=== PATIENT | male | born 1945 | race Caucasian/White ===

== ENCOUNTER 2022-07-11 12:38 | Inpatient (IN) | payer OTHER ==
[2022-07-11] VITALS (20 sets, daily range): BP systolic 82–109; BP diastolic 50–60
[~2022-07-11] VITALS: Ht 175.3 cm; Wt 74.8 kg
--- NOTE | 2022-07-11 12:50 | NUR ---
DUCRA 88 FROM HOME FOUND BY SON ON THE FLOOR WITH BRIGHT RED BLOOD ON FECES
[2022-07-11 13:17] LABS: EOSINOPHILS % (AUTO) 0.7 % (0.0-6.0); LYMPHOCYTES # (AUTO) 1.6 K/uL (0.8-4.8)
[2022-07-11 13:21] LABS: BASOPHILS % (AUTO) 0.2 % (0.0-2.0); LYMPHOCYTES % (AUTO) 19.9 % (20.0-44.0); MEAN CORPUSCULAR HGB CONC 32 g/dl (31.0-36.0); MEAN CORPUSCULAR VOLUME 95 fL (80-96); MONOCYTES # (AUTO) 0.4 K/uL (0.1-1.30); MONOCYTES % (AUTO) 5.4 % (2.0-12.0); NEUTROPHILS % (AUTO) 73.8 % (43.0-81.0); PLATELET COUNT (AUTO) 271 K/uL (150-450); WHITE BLOOD COUNT (AUTO) 8.1 K/uL (4.3-11.0)
[2022-07-11 13:23] LABS: HEMATOCRIT 14 % (39-51); HEMOGLOBIN 4.4 g/dL (13.5-17.5); RED BLOOD CELL COUNT(AUTO) 1.47 MIL/uL (4.5-6.0)
[2022-07-11 13:24] LABS: CALCIUM, SERUM 6.9 mg/dL (8.5-10.1); CREATININE 1.2 mg/dL (0.6-1.3)
--- NOTE | 2022-07-11 13:29 | NUR ---
DR MAJOR AT BEDSIDE
[2022-07-11 13:30] LABS: ALBUMIN 1.7 g/dL (3.4-5.0); BILIRUBIN,DIRECT 0.1 mg/dL (0.0-0.2); BILIRUBIN,TOTAL 0.1 mg/dL (0.2-1.0); TOTAL PROTEIN, SERUM 3.7 g/dL (6.4-8.2)
--- NOTE | 2022-07-11 13:42 | NUR ---
COVID SWAB TAKEN
--- NOTE | 2022-07-11 14:00 | NUR ---
CONSENT FOR BLOOD TRANSFUSION SIGNED BY PATIENT
--- NOTE | 2022-07-11 14:38 | NUR ---
bed given 108
--- NOTE | 2022-07-11 14:39 | NUR ---
ROOM 108, ADMITTING AWARE
--- NOTE | 2022-07-11 14:48 | NUR ---
REPORT GIVEN TO CHE JORDAN
[2022-07-11] MEDS ORDERED: ONDANSETRON HCL/PF 4 MG/2 ML VIAL ONE (14:56)
[2022-07-11] MEDS ORDERED: ONDANSETRON HCL/PF 4 MG/2 ML VIAL IV ONE (15:00)
[2022-07-11] MEDS ORDERED: IV NS 0.9% 1,000 ML IV ONE ×3 (15:00→17:00)
[2022-07-11] MEDS ORDERED: ONDANSETRON HCL/PF 4 MG/2 ML VIAL IVP PRN (15:30)
[2022-07-11] MEDS ORDERED: Calcium Gluconate 1GM/10ML 9.3 MEQ in IV NS 0.9% 100 ML IV ONE (15:30)
[2022-07-11] MEDS ORDERED: ACETAMINOPHEN 325 MG TABLET PO PRN (15:30)
--- NOTE | 2022-07-11 15:39 | NUR ---
2GM OF CALCIUM GLUCONATE RUNNING AT 100ML/HR ENDORSED TO FLOOR NURSE, INFUSING WELL
--- NOTE | 2022-07-11 15:42 | NUR ---
MOVED TO INPATIENT ROOM SAFELY PER ACLS PROTOCOL.
[2022-07-11 15:45] LABS: EOSINOPHILS % (MANUAL) 1 % (0-4); LYMPHOCYTES % (MANUAL) 14 % (16-48); MONOCYTES % (MANUAL) 5 % (0-11.0); NEUTROPHILS % (MANUAL) 80 (42-76)
--- NOTE | 2022-07-11 15:45 | NUR ---
ADMITTED PATIENT TO THE UNIT. PT ALERT ORIENTED X 4, BILINGUAL EAST TIMOR[place], CHINESE SPEAKER, ABLE TO MAKE NEEDS KNOWN, ANSWERING QUESTIONS. PT AMBULATORY WITH ASSISTANCE, SKIN CLEAN. VITAL SIGNS BP 88/46, HR 81, TEMP 98.6, SAT 99% ON RA. IV ACCESS RIGHT AC AND RIGHT HAND. FALL PRECAUTIONS IMPLEMENTED, BED LOCKED AND IN LOWEST POSITION, WILL CONTINUE TO MONITOR.
[2022-07-11 15:55] LABS: HEMOGLOBIN 3.9 g/dL (13.5-17.5)
--- NOTE | 2022-07-11 16:04 | NUR ---
lab just called in stated hgb 3.8 hct 12 daniella flores DNP notified waiting for returning call back
--- NOTE | 2022-07-11 16:05 | NUR ---
returned call back and blood transfusion orders given we will give ASAS possible when ready
[2022-07-11] MEDS: PANTOPRAZOLE 40 MG VIAL IV SCH ×2 (16:10→21:36)
[2022-07-11 18:11] LABS: VBG COHb 0.1 %; VBG MetHb 4.7 %; VBG O2Hb 11.1 %; VENT MODE, VBG RA
--- NOTE | 2022-07-11 19:19 | NUR ---
RN CLOSING NOTE PATIENT ALERT, COOPERATIVE, O2 VIA NC AT 2L PER DOCTORS ORDER. GETTING FIRST OUT OF [facility] RBC UNIT TRANSFUSE RIGHT NOW. VITAL SIGNS STABLE. SAFETY MEASURES IMPLEMENTED, WILL ENDORSE TO THE UX DEVELOPER DESIGNER TO JOANA.
--- NOTE | 2022-07-11 19:30 | NUR ---
RN OPENING NOTE RECEIVED PT IN BED, AWAKE, A/0 X 4, SPEAKS SETSWANA. BLOOD TRANSFUSION CURRENTLY ON GOING. ON THERAPY VIA NC @ 2 LPM, TOLERATING WELL. NO S/SX OF ACUTE RESPI DISTRESS NOTED AT THIS TIME. CLAMSHELL ENGINEER READS SR WITH HR IN THE 70s. O2 SAT @ 100%. IV ACCESS NOTED ON RAC WHERE BT IS ON GOING, R HAND RUNNING NS @ 75 CC/HR. BOTH PATENT AND INTACT. ALL SAFETY MEASURES IN PLACE: BED LOCKED IN LOW POSITION, BED ALARM ON, SR UP X 2, CALL LIGHT WITHIN REACH. WILL CONTINUE TO MONITOR PT.
--- NOTE | 2022-07-11 20:08 | NUR ---
2008 Admit status verified with LOADING UNIT OPERATOR SEATING Tye and corin Morales she wanted patient to be admitted to ICU for Severe anemia active bleed. supercharge repair supervisor Lashonda made aware that patient was supposed to go to ICU.
--- NOTE | 2022-07-11 20:15 | NUR ---
2015 Per ICU Charge Nurse Elizabeth patient will go to room 258.
--- NOTE | 2022-07-11 20:41 | NUR ---
RN NOTE 2ND BAG OF PRBC STARTED @ 20:29. PT VS STABLE. NO S/SX OF ACUTE DISTRESS NOTED AT THIS TIME. VS FOLLOW: TEMP: 98.1 BP: 91/51 HR: 77 RR: 18 O2 SAT: 100%
--- NOTE | 2022-07-11 21:00 | NUR ---
PT RECEIVED FROM SIMONE WITH A DX OF ACUTE GI BLEED AND A HX OF ULCER AND PREVIOUS GI BLEED. A/O X4, SPEAKS NIUEAN. ON 02 AT 2LPM VIA NC. ATTACHED TO MONITOR. SHOWING SR. IV ACCESS ON RT HAND INFUSING NS AT 75ML/HR AND RT AC INFUSING 2ND BAG OF PRBC AT 120ML/HR, TOLERATING WELL. ON CLEAR LIQUID DIET. SKIN CHECK DONE. SKIN INTACT. BELONGINGS CHECKED, FORM PLACED ON CHART. VS CHECKED. SAFETY MEASURES IMPLEMENTED. WILL CONTINUE PLAN OF CARE.
--- NOTE | 2022-07-11 21:06 | NUR ---
RN NOTE REPORT GIVEN TO FRANCISCA FROM ICU. TRANSFERRED PT.
--- NOTE | 2022-07-11 21:10 | NUR ---
2109 Transferred to ICU on ACLS protocol. Patient awake and verbally responsive. Second bag of PRBC infusing, no signs of adverse reaction to blood transfusion noted.
[2022-07-11] MEDS: IV NS 0.9% 1,000 ML IV PRN (23:01)
[2022-07-12] VITALS (87 sets, daily range): BP systolic 87–156; BP diastolic 38–114
[2022-07-12] MEDS ORDERED: IV NS 0.9% 500 ML IV ONE
--- NOTE | 2022-07-12 00:12 | NUR ---
Patient hemodynamically unstable.BRENDON YARBROUGH notified with orders received and carried out. NS 500 ml bolus given.
--- NOTE | 2022-07-12 01:05 | NUR ---
MIDLINE G 18 inserted to BAILEY by BRENDON Herrera with good returned.
--- NOTE | 2022-07-12 07:05 | NUR ---
RN NOTES RECEIVED PT ON BED A/Ox4ON 2L O2 N/C , ON TELE SR HR IN 70'S, IV SITES CDI, SR UP x3, CALL LIGHT WITHIN EASY REACH, BED LOCKED AND IN LOWEST POSITION, CONTINUE TO MONITOR .
--- NOTE | 2022-07-12 07:09 | NUR ---
PT SLEPT INTERMITTENTLY THROUGHOUT THE NIGHT. A/O X4, SPEAKS MOZAMBICAN. ON 02 AT 2LPM VIA NC. ATTACHED TO MONITOR. SHOWING SR. IV ACCESS ON RT HAND INFUSING NS AT 75ML/HR,TOLERATING WELL. IV ACCESS RT AC ON SL. ON CLEAR LIQUID DIET. NEEDS ATTENDED. SAFETY MEASURES MAINTAINED. WILL ENDORSE TO NEXT NURSE ON DUTY FOR CONTINUITY OF CARE
[2022-07-12 07:51] LABS: BASOPHILS % (AUTO) 0.3 % (0.0-2.0); EOSINOPHILS % (AUTO) 0.5 % (0.0-6.0); HEMATOCRIT 22 % (39-51); HEMOGLOBIN 7.2 g/dL (13.5-17.5); LYMPHOCYTES # (AUTO) 1.1 K/uL (0.8-4.8); LYMPHOCYTES % (AUTO) 14.3 % (20.0-44.0); MEAN CORPUSCULAR HGB CONC 33 g/dl (31.0-36.0); MEAN CORPUSCULAR VOLUME 90 fL (80-96); MONOCYTES # (AUTO) 0.5 K/uL (0.1-1.30); MONOCYTES % (AUTO) 6.7 % (2.0-12.0); NEUTROPHILS # (AUTO) 6.2 K/uL (1.8-8.9); NEUTROPHILS % (AUTO) 78.2 % (43.0-81.0); PLATELET COUNT (AUTO) 194 K/uL (150-450); RED BLOOD CELL COUNT(AUTO) 2.45 MIL/uL (4.5-6.0); WHITE BLOOD COUNT (AUTO) 7.9 K/uL (4.3-11.0)
[2022-07-12] MEDS: PANTOPRAZOLE 40 MG VIAL IV SCH ×2 (08:07→21:12)
[2022-07-12 08:15] LABS: CREATININE 0.8 mg/dL (0.6-1.3); MAGNESIUM 1.9 mg/dL (1.8-2.4); PHOSPHORUS 2.9 mg/dL (2.5-4.9); POTASSIUM 4.1 mmol/L (3.5-5.1)
[2022-07-12] MEDS: IV NS 0.9% 1,000 ML IV PRN ×2 (08:22→20:10)
[2022-07-12 14:06] LABS: HEMOGLOBIN 7.4 g/dL (13.5-17.5)
[2022-07-12 16:40] LABS: BILIRUBIN,URINE NEGATIVE (NEGATIVE); LEUKOCYTE ESTERASE ,URINE NEGATIVE (NEGATIVE); NITRITE, URINE NEGATIVE (NEGATIVE); PH,URINE 5.5 (5.0-8.0); PROTEIN,URINE NEGATIVE (NEGATIVE); UGLUCOSE NEGATIVE (NEGATIVE); UROBILINOGEN,URINE 0.2 EU/dL (0.2)
[2022-07-12 16:42] LABS: COLOR,URINE LIGHT YELLOW (YELLOW)
[2022-07-12] MEDS ORDERED: PANT40TA49 PO (17:06)
[2022-07-12] MEDS ORDERED: SUCR1TAB PO (17:06)
[2022-07-12] MEDS ORDERED: CYAN-51 PO (17:08)
[2022-07-12] MEDS ORDERED: PEG 3350/NA SULF,BICARB,CL/KCL 4,000 ML BOTTLE PO ONE (18:00)
--- NOTE | 2022-07-12 18:21 | NUR ---
END OF SHIFT NOTE: PATIENT MADE AWARE OF THE PLAN FOR COLONOSCOPY AND EGD TOMORROW. UNEVENTFUL SHIFT. CONSENT COMPLETED. NO ACTIVE BLEEDING NOTED. VITALS WITHIN PATIENT'S PARAMETERS ON 2L NASAL CANNULA. TOLERATED CLEAR LIQUID DIET WELL. IV FLUIDS CONTINUES. FAMILY AT BEDSIDE. END OF SHIFT CHART CHECK DONE.
[2022-07-12 19:20] LABS: HEMOGLOBIN 7.5 g/dL (13.5-17.5)
--- NOTE | 2022-07-12 19:30 | NUR ---
PATIENT AWAKE. A/OX4. SPEAKS TANZANIAN. AWARE OF THE PLAN FOR COLONOSCOPY AND EGD TOMORROW. VITALS WITHIN PATIENT'S PARAMETERS. ON O2 AT 2LPM VIA NASAL CANNULA. TOLERATED CLEAR LIQUID DIET WELL. IV ACCESS ON RAC #18G AND RT HAND #18G INFUSING NS AT 100ML/HR. URINAL AND COMMODE AT BEDSIDE. SAFETY MEASURES IN PLACE. CALL LIGHT WITHIN REACH. WILL CONTINUE PLAN OF CARE.
--- NOTE | 2022-07-12 19:35 | NUR ---
STARTED GIVING GOLYTELY, EXPLAINED NEED FOR PROCEDURE TOMORROW. PT VERBALIZED UNDERSTANDING AND TOLERATED WELL.
[2022-07-12 23:52] LABS: HEMOGLOBIN 7.5 g/dL (13.5-17.5)
[2022-07-13] VITALS (36 sets, daily range): BP systolic 90–141; BP diastolic 43–100
[2022-07-13 03:45] LABS: BASOPHILS % (AUTO) 0.4 % (0.0-2.0); EOSINOPHILS % (AUTO) 0.3 % (0.0-6.0); HEMATOCRIT 21 % (39-51); LYMPHOCYTES # (AUTO) 0.9 K/uL (0.8-4.8); LYMPHOCYTES % (AUTO) 13.2 % (20.0-44.0); MEAN CORPUSCULAR HGB CONC 33 g/dl (31.0-36.0); MEAN CORPUSCULAR VOLUME 89 fL (80-96); MONOCYTES # (AUTO) 0.5 K/uL (0.1-1.30); MONOCYTES % (AUTO) 7.6 % (2.0-12.0); NEUTROPHILS # (AUTO) 5.3 K/uL (1.8-8.9); NEUTROPHILS % (AUTO) 78.5 % (43.0-81.0); PLATELET COUNT (AUTO) 230 K/uL (150-450); RED BLOOD CELL COUNT(AUTO) 2.35 MIL/uL (4.5-6.0); WHITE BLOOD COUNT (AUTO) 6.8 K/uL (4.3-11.0)
[2022-07-13 04:00] LABS: CALCIUM, SERUM 7.2 mg/dL (8.5-10.1); CREATININE 0.9 mg/dL (0.6-1.3); MAGNESIUM 1.9 mg/dL (1.8-2.4); PHOSPHORUS 3.3 mg/dL (2.5-4.9); POTASSIUM 3.9 mmol/L (3.5-5.1)
--- NOTE | 2022-07-13 04:01 | NUR ---
Lab result Hgb 7.0. Charge nurse informed.
[2022-07-13] MEDS: IV NS 0.9% 1,000 ML IV PRN ×2 (06:18→16:35)
--- NOTE | 2022-07-13 07:18 | NUR ---
PATIENT ASLEEP. A/OX4. SPEAKS MALAY. VITALS WITHIN PATIENT'S PARAMETERS. ON O2 AT 2LPM VIA NASAL CANNULA. NPO SINCE 12MN. IV ACCESS ON RAC, RT HAND AND BAILEY ML INFUSING NS AT 100ML/HR. URINAL AND COMMODE AT BEDSIDE. NEEDS ATTENDED. KEPT CLEAN AND DRY. SAFETY MEASURES MAINTAINED. CALL LIGHT WITHIN REACH. WILL ENDORSE TO NEXT NURSE ON DUTY FOR CONTINUITY OF CARE.
[2022-07-13] MEDS: PANTOPRAZOLE 40 MG VIAL IV SCH ×2 (08:35→21:03)
--- NOTE | 2022-07-13 09:55 | NUR ---
ADMITTED PT. FROM ER DEPT C/O NAUSEA/VOMITING PER REPORT FROM RN-JOSHUA; ON LEVO DRIP PER ORDER OF 0.1MCG/KG/MIN AND VANCO IVPB ;AND NS 1000MLs JUST COMPLETED NOW; F/C AND BILIARY DRAIN/PICC BAILEY IN-PLACE, SAFETY MEASURES IN-PLACE, WILL CONTINUE TO MONITOR. Addendum: 07/13/22 at 2008 by SUBHA FLANNERY RN DISREGARD ABOVE RN NOTES AT 0955AM, WRONG PATIENT.
[2022-07-13] MEDS ORDERED: ANESTHESIA TRAY IN PYXIS 1 EA TRAY MC ONE (14:14)
--- NOTE | 2022-07-13 17:58 | NUR ---
RN NOTE: 1750 PATIENT WAS PICKED UP BY OR STAFF. VITALS WITHIN PATIENT'S PARAMETERS ON 2L NASAL CANNULA. DENIED ANY PAIN OR DISTRESS. IN GOOD SPIRITS.
--- NOTE | 2022-07-13 19:30 | NUR ---
PATIENT BACK FROM COLONOSCOPY AND EGD PROCEDURE. AWAKE. A/OX4. SPEAKS JAMAICAN. VS HR 62, RR 18, SPO2 100%, BP 119/71. ON O2 AT 2LPM VIA NASAL CANNULA. ON CLD DIET. IV ACCESS ON RAC, RT HAND AND BAILEY ML INFUSING NS AT 100ML/HR. URINAL AND COMMODE AT BEDSIDE. CELLPHONE, WATCH AND JEWELRY GIVEN TO PT. SAFETY MEASURES IN PLACE. CALL LIGHT WITHIN REACH. WILL CONTINUE PLAN OF CARE.
[2022-07-14] VITALS (13 sets, daily range): BP systolic 100–147; BP diastolic 57–89
[2022-07-14] MEDS: IV NS 0.9% 1,000 ML IV PRN ×2 (01:48→10:08)
[2022-07-14 04:21] LABS: BASOPHILS % (AUTO) 0.6 % (0.0-2.0); EOSINOPHILS % (AUTO) 1.6 % (0.0-6.0); HEMATOCRIT 23 % (39-51); HEMOGLOBIN 7.3 g/dL (13.5-17.5); LYMPHOCYTES # (AUTO) 1.2 K/uL (0.8-4.8); LYMPHOCYTES % (AUTO) 25.1 % (20.0-44.0); MEAN CORPUSCULAR HGB CONC 32 g/dl (31.0-36.0); MEAN CORPUSCULAR VOLUME 91 fL (80-96); MONOCYTES # (AUTO) 0.5 K/uL (0.1-1.30); MONOCYTES % (AUTO) 11.3 % (2.0-12.0); NEUTROPHILS # (AUTO) 2.9 K/uL (1.8-8.9); NEUTROPHILS % (AUTO) 61.4 % (43.0-81.0); PLATELET COUNT (AUTO) 285 K/uL (150-450); WHITE BLOOD COUNT (AUTO) 4.7 K/uL (4.3-11.0)
[2022-07-14 04:30] LABS: CALCIUM, SERUM 7.1 mg/dL (8.5-10.1); CARBON DIOXIDE 25 mmol/L (21-32); CHLORIDE 110 mmol/L (98-107); GLUCOSE 104 mg/dL (74-106); MAGNESIUM 1.8 mg/dL (1.8-2.4); POTASSIUM 3.6 mmol/L (3.5-5.1); SODIUM SERUM 141 mmol/L (136-145); UREA NITROGEN, BLOOD 5 mg/dL (7-18)
--- NOTE | 2022-07-14 07:12 | NUR ---
PT AWAKE, RESTING COMFORTABLY IN BED. A/OX4. SPEAKS WELSH. ON O2 AT 2LPM VIA NASAL CANNULA. IV ACCESS ON RAC, RT HAND AND BAILEY ML INFUSING NS AT 100ML/HR. URINAL AND COMMODE AT BEDSIDE. NEEDS ATTENDED. SAFETY MEASURES MAINTAINED. CALL LIGHT WITHIN REACH. WILL ENDORSE TO NEXT NURSE ON DUTY FOR CONTINUITY OF CARE.
[2022-07-14] MEDS: PANTOPRAZOLE 40 MG VIAL IV SCH ×2 (08:40→21:47)
--- NOTE | 2022-07-14 09:30 | NUR ---
RN NOTES PT BEING TRANSFERRED TO TELEMETRY UNIT. REPORT GIVEN TO ROSARIO JORDAN. PT IS COMFORTABLE, STABLE, AND VS STABLE, ALL DUE MEDICATIONS GIVEN. BELONGINGS CHECKED AND TRANSFERRED WITH PT.
--- NOTE | 2022-07-14 09:45 | NUR ---
RN NOTE RECEIVED REPORT FROM LORETTA LOPEZ RN FOR [facility]
--- NOTE | 2022-07-14 19:30 | NUR ---
BENDER HELPER OPENING NOTE RECEIVED PT AWAKE SITTING ON BED, VISITORS AT BEDSIDE. A/O X4, ABLE TO MAKE NEEDS KNOWN. ON RA WITH NO S/S OF SOB OR DISTRESS, O2 SAT AT 98%. DENIES PAIN AT THIS TIME. ON TELE MONITOR READING SR 78. IV ACCESS AT RAC AND R WRIST, BOTH LEAKING/INFILTRATED, WILL BE REMOVED. BAILEY MIDLINE INTACT, PATENT, FLUSHING WELL, RUNNING NS @ 100ML/HR. ALL SAFETY MEASURES IN PLACE: BED LOCKED AT LOWEST POSITION, SIDE RAILS UP X3, BED ALARM ON, CALL LIGHT AND TRAY TABLE WITHIN REACH. WILL CONTINUE TO MONITOR AND ASSIST.
--- NOTE | 2022-07-14 19:35 | NUR ---
RN CLOSING NOTE PT ALERT AND ORIENTED X4. PT IS MALTESE SPEAKING. PT ON TELE MONITOR PT HAS R UPPER ARM MIDLINE. IV INTACT, PATENT AND FLUSHING WELL. PT ON ROOM AIR TOLERATING AT 93%. ALL SAFETY MEASURES IN PLACE. CALL LIGHT WITHIN REACH. BED LOCKED AT LOWEST POSITION. SIDE RAILS UP X2. FAMILY AT BEDSIDE. ENDORSED TO SAMPLE SELECTOR RN FOR CONUTITY OF CARE
[2022-07-15] VITALS: BP 123/76
[2022-07-15] MEDS: IV NS 0.9% 1,000 ML IV PRN (02:18)
[2022-07-15 04:00] VITALS: BP 141/87
--- NOTE | 2022-07-15 07:00 | NUR ---
MUSIC VIDEO PRODUCER OPENING NOTES: RECEIVED PATIENT IN BED, AWAKE ALERT AND ORIENTED X 4 AND ABLE TO MAKE NEEDS KNOWN. NO SOB OR CARDIAC DISTRESS NOTED. ON INTERVENTIONAL PAIN PHYSICIAN WITH CURRENT READING OF: SINUS RHYTHM @87 BPM. IV ACCESS ON BAILEY PATENT,INTACT AND INFUSING NS 1L @ 100ML/HR. SAFETY MEASURES MAINTAINED: BED LOCKED AND IN LOWEST POSITION, SIDE RAILS UP X 2. CALL LIGHT WITHIN EASY REACH AND WILL MONITOR PT ACCORDINGLY.
[2022-07-15 07:20] LABS: BASOPHILS % (AUTO) 0.6 % (0.0-2.0); EOSINOPHILS % (AUTO) 0.9 % (0.0-6.0); HEMATOCRIT 26 % (39-51); HEMOGLOBIN 8.3 g/dL (13.5-17.5); LYMPHOCYTES # (AUTO) 0.5 K/uL (0.8-4.8); LYMPHOCYTES % (AUTO) 11.6 % (20.0-44.0); MEAN CORPUSCULAR HGB CONC 32 g/dl (31.0-36.0); MEAN CORPUSCULAR VOLUME 90 fL (80-96); MONOCYTES # (AUTO) 0.3 K/uL (0.1-1.30); MONOCYTES % (AUTO) 6.5 % (2.0-12.0); NEUTROPHILS # (AUTO) 3.7 K/uL (1.8-8.9); NEUTROPHILS % (AUTO) 80.4 % (43.0-81.0); PLATELET COUNT (AUTO) 359 K/uL (150-450); RED BLOOD CELL COUNT(AUTO) 2.86 MIL/uL (4.5-6.0); WHITE BLOOD COUNT (AUTO) 4.6 K/uL (4.3-11.0)
[2022-07-15 07:38] LABS: CALCIUM, SERUM 7.6 mg/dL (8.5-10.1); MAGNESIUM 1.9 mg/dL (1.8-2.4); PHOSPHORUS 3.2 mg/dL (2.5-4.9); POTASSIUM 3.2 mmol/L (3.5-5.1)
--- NOTE | 2022-07-15 07:40 | NUR ---
COOLER ROOM WORKER CLOSING NOTE PT RESTING IN BED AT THIS TIME. A/O X4, ABLE TO MAKE NEEDS KNOWN. STABLE ON O2 2L VIA NC WITH NO S/S OF SOB OR DISTRESS, O2 SAT AT 100%. DENIES PAIN AT THIS TIME. ON TELE MONITOR READING SR 85. IV ACCESS BAILEY MIDLINE INTACT, PATENT, FLUSHING WELL, RUNNING NS @ 100ML/HR. ALL CARE PROVIDED AND MEDS TOLERATED WELL. ALL SAFETY MEASURES MAINTAINED: BED LOCKED AT LOWEST POSITION, SIDE RAILS UP X3, BED ALARM ON, CALL LIGHT AND TRAY TABLE WITHIN REACH. WILL CONTINUE TO MONITOR AND ASSIST.
[2022-07-15 08:00] VITALS: BP 139/80
[2022-07-15] MEDS: PANTOPRAZOLE 40 MG VIAL IV SCH (08:22)
[2022-07-15] MEDS ORDERED: POTASSIUM CHLORIDE 20 MEQ TAB.PRT.SR PO SCH (10:30)
[2022-07-15 12:00] VITALS: BP 115/57
[2022-07-15] MEDS ORDERED: FERR325T23 PO (12:36)
--- NOTE | 2022-07-15 16:04 | NUR ---
VEHICLE FUEL SYSTEMS CONVERTER NOTES: PT DC HOME ACCOMPANIED BY , PT A/O X 4 AND ABLE TO MAKE NEEDS KNOWN. NO SOB OR CARDIAC DISTRESS NOTED.DISCHARGE PACKET AND INSTRUCTIONS GIVEN TO PT AND FAMILY AND VERBALIZED UNDERSTANDING. DC IV ACCESS AND REMOVED IDENTIFICATION BAND. PT'S SKIN IS INTACT. BELONGING'S LIST SIGNED. PT LEFT THE UNIT STABLE. ACCOMPANIED BY MANPREET RAMIREZ.
[2022-07-15] MEDS ORDERED: CLAR-45 PO (16:14)
[2022-07-15] MEDS ORDERED: AMOX500T2 PO (16:14)
[2022-07-15] MEDS ORDERED: OMEP10CA5 PO (16:14)
== END 2022-07-15 15:53 | disposition home health service (06) | DRG 377 ==
LOC: ER 12:40 → TELE1 15:06 → ICU 21:25 → TELE1 07-14 09:35
PROVIDERS: ADMIT Nurse Practitioner Acute Care; ATTEND Registered Nurse
PROC: 30233N1 Transfusion of Nonautologous Red Blood Cells into Peripheral Vein, Percutaneous Approach (ICD-10-PCS; principal; 2022-07-11)
PROC: 05HB33Z Insertion of Infusion Device into Right Basilic Vein, Percutaneous Approach (ICD-10-PCS; 2022-07-12)
PROC: 0DJD8ZZ Inspection of Lower Intestinal Tract, Via Natural or Artificial Opening Endoscopic (ICD-10-PCS; 2022-07-13)
PROC: 0DB68ZX Excision of Stomach, Via Natural or Artificial Opening Endoscopic, Diagnostic (ICD-10-PCS; 2022-07-13)
DX: K27.4 Chronic or unspecified peptic ulcer, site unspecified, with hemorrhage (principal); E43 Unspecified severe protein-calorie malnutrition; E87.1 Hypo-osmolality and hyponatremia; N17.9 Acute kidney failure, unspecified; I70.0 Atherosclerosis of aorta; K29.70 Gastritis, unspecified, without bleeding; I95.1 Orthostatic hypotension; Z20.822 Contact with and (suspected) exposure to COVID-19; Z87.11 Personal history of peptic ulcer disease; Z79.899 Other long term (current) drug therapy; K64.8 Other hemorrhoids; W18.30XA Fall on same level, unspecified, initial encounter; Y92.002 Bathroom of unspecified non-institutional (private) residence as the place of occurrence of the external cause; E88.09 Other disorders of plasma-protein metabolism, not elsewhere classified; B96.81 Helicobacter pylori [H. pylori] as the cause of diseases classified elsewhere; D50.0 Iron deficiency anemia secondary to blood loss (chronic)
CPT/HCPCS: 36410; 36415; 71045-TC; 80048-TC; 80061-TC; 80076-TC; 82010-TC; 82803-TC; 83735-TC; 84100-TC; 85025-TC; 85027-TC; 85730-TC; 86850-TC; 87081-TC; 88305-TC; 88313-TC; 88342; 94799-TC; A4223; C9113; C9803; G0378; J0610; J2405; J2704; J3490; J7030; J7040; P9016